=== PATIENT | female | born 1955 | race Caucasian/White ===

== ENCOUNTER 2024-01-03 06:51 | Day surgery (SDC) | payer OTHER, SELFPAY ==
[2023-12-20 11:36] LABS: % Basophils 0.7 % (0-2); % Eosinophils 0.7 % (0-6); % Immature Granulocytes 0.3 % (0-0.5); % Lymphocytes 24.3 % (20.5-51.1); % Monocytes 8.6 % (1.7-9.3); % Neutrophils 65.4 % (42.2-75.2); Absolute Lymphocytes 1.4 10^3/uL (1.2-3.4); Absolute Monocytes 0.5 10^3/uL (0.1-0.6); Absolute Neutrophils 3.9 10^3/uL (1.4-6.5); Hematocrit 41.5 % (37.0-47.0); Hemoglobin 14.1 g/dL (12.0-16.0); Mean Corpuscular Hgb 30.1 pg (27.0-31.0); Mean Corpuscular Volume 88.7 fL (81.0-99.0); Nucleated Red Blood Cells % 0 %; Platelet Count 202 10^3/uL (130-400); Red Blood Cell Count 4.68 10^6/uL (4.20-5.40); Red Cell Dist. Width 13.6 % (11.5-14.5); White Blood Cell Count 5.9 10^3/uL (4.8-10.8)
[2023-12-20 11:48] LABS: INR 1.15; PT 14.5 Sec (11.4-14.6)
[2023-12-20 12:28] LABS: ALT (SGPT) 75 U/L (0-35); AST (SGOT) 31 U/L (14-36); Albumin 4.5 g/dl (3.5-5.0); Alkaline Phosphatase 69 U/L (38-126); Blood Urea Nitrogen 19 mg/dl (7-17); Calcium 10.4 mg/dl (8.4-10.2); Carbon Dioxide 27 mmol/L (22-30); Chloride 101 mmol/L (98-107); Glucose 89 mg/dl (70-99); Magnesium 2.4 mg/dl (1.6-2.3); Sodium 138 mmol/L (135-145); Total Bilirubin 0.8 mg/dl (0.2-1.3); Total Protein 6.7 g/dl (6.3-8.2); eGFR > 60.00
[2024-01-03 07:25] VITALS: BMI 27.7
== END 2024-01-03 09:10 | disposition home or self-care (01) ==
LOC: CATH 06:51
PROVIDERS: ATTENDING PHYSICIAN Internal Medicine Cardiovascular Disease; FAMILY PHYSICIAN Family Medicine; OTHER PHYSICIAN Internal Medicine Cardiovascular Disease
DX: I08.3 Combined rheumatic disorders of mitral, aortic and tricuspid valves (principal); I48.0 Paroxysmal atrial fibrillation; I10 Essential (primary) hypertension; E78.5 Hyperlipidemia, unspecified; Z79.01 Long term (current) use of anticoagulants; Z85.820 Personal history of malignant melanoma of skin; M19.90 Unspecified osteoarthritis, unspecified site
CPT/HCPCS: 93312; 93320; 93325; 36415; 80053; 83735; 85025; 85610; 86850; 86900; 86901; 93005

== ENCOUNTER 2024-01-05 08:49 | Day surgery (SDC) | payer OTHER, SELFPAY ==
[2023-12-20 11:04] VITALS: BMI 28.7
[2024-01-05] VITALS (9 sets, daily range): BP systolic 86–138; BP diastolic 53–90; BMI 27.0
[2024-01-05 14:11] LABS: ACT-LR - POC 290 Seconds (116-155)
[2024-01-05 14:29] LABS: ACT-LR - POC 314 Seconds (116-155)
[2024-01-05 14:53] LABS: ACT-LR - POC 364 Seconds (116-155)
[2024-01-05 15:34] LABS: ACT-LR - POC 368 Seconds (116-155)
[2024-01-05 15:48] LABS: ACT-LR - POC 160 Seconds (116-155)
--- NOTE | 2024-01-05 16:06 | ITS.CL.ABL ---
Fabrication Lead - Ablation
Ablation
Procedure Report:
Primary [employer]ale Miner: Mahesh Ovalles MD
Procedure Date: 01/05/2024
Patient History:
Patient is a pleasant 68-year-old female with past medical history significant for hypertension hyperlipidemia melanoma arthritis paroxysmal symptomatic atrial fibrillation.
See H&P for complete details.
Indication:
Symptomatic paroxysmal atrial fibrillation
Arrhythmia Specific History:
Prior Medical Therapies for Rate and Rhythm Control:
[ ] Beta-tiara
X Calcium channel-tiara
[ ] Amiodarone
[ ] Dronederone
[ ] Sotalol
[ ] Flecainide
[ ] Dofetilide
[ ] Options limited by bradycardia
[ ] Options limited by comorbid renal disease
Prior Procedural Therapies for AF/AFL:
[ ] Cardioversion
[ ] Pulmonary Vein Isolation
[ ] Posterior Wall Isolation
[ ] Additional lines (Specify)
[ ] Surgical Rojas-MAZE or PVI (Specify)
Procedure Performed:
X AF ablation procedure (17834) -- includes LA/CS pacing, trans-septal, 3D mapping, + ICE
[ ] +IV drug (40582)
[ ] +Other Arrhythmia (93037)
[ ] +Other AF Line/ablation (38639)
Risks and expected recovery has been explained in detail. Alternative options have been explored, and in a shared-decision making fashion we have decided that this was the most appropriate procedure.
Method
NPO status confirmed. Grounding pad applied. Defibrillator pads applied. Continuous surface ECG, pulse oximetry, and blood pressure were monitored. Procedure was performed under general anesthesia, with anesthesia services.
Both groins were clipped, prepped with Chloraprep, and draped in sterile fashion. Time out was called. Local anesthesia administered with bupivacaine. The right and left femoral veins were accessed for catheter placement, using ultrasound guidance,
micro-puncture needle/wire, and modified seldinger technique. 3 sheaths were placed. The following catheters were used:
[ ] Tacticath SE (D/F Curve) ablation catheter
X Viewflex 9Fr ICE catheter
X Inquiry decapolar 6Fr diagnostic catheter
[ ] CRD Hex 6Fr
[ ] Arctic Front Advance Cryoballoon ([ ]28mm[ ]23mm)
[ ] Achieve Advance mapping catheter ([ ]15mm[ ]20mm)
X FlexCath Contour 10 Fr with PulseSelect PFA Catheter
X Advisor HD Grid Mapping Catheter, SE
[ ] Acuson AcuNav 8 Fr ICE catheter
[ ]Other: [ ]
Intracardiac ultrasound (ICE) was carefully advanced into the right atrium to guide sheath placement over a J-wire, catheter placement, guide trans-septal puncture, identify potential complications, identify anatomic structures and ensure proper
contact between ablation catheter and tissue.
Heparin was given prior to trans-septal puncture. Heparin was given to achieve and maintain a target ACT of 300-400 seconds throughout the procedure.
Trans-septal access was performed under ICE guidance. The trans-septal puncture was performed with a SafeSept wire through a Brockenbrough needle assembly through the steerable sheath. The wire was visualized as it entered the LSPV and system
advanced under ICE guidance and fluoroscopy into the LA. The Brockenbrough needle assembly, SafeSept wire and sheath dilator were removed under negative pressure. LA pressure was measured and recorded.
ICE and 3D mapping was performed to identify relevant cardiac structures. A careful 3D map was created to assess for regions of low-voltage and abnormal electrogram signals using HD grid mapping catheter and PulseSelect catheter. Additional mapping
was performed as outlined below.
Prior to ablation, glycopyrrolate was provided. PulseSelect catheter was advanced over J-wire to the ostium of each vein. Pulmonary vein isolation was performed with ostial and antral lesions in a circumferential manner. Contact was visualized via
EAM, ICE, fluoroscopy, and EGM signals. Following completion of ablation lesions, a post-ablation voltage/activation map was performed in sinus rhythm. Entrance and exit block were confirmed for each vein.
Catheter and sheath were removed from the left atrium and post-ablation intracardiac echo evaluation was consistent with pre-ablation with no changes and no pericardial effusion and there is no left atrial thrombus or left ventricle thrombus seen.
Electrophysiology study was performed. Hemostasis was obtained with Vascade for each sheath and with manual pressure. Protamine was used for reversal.
Estimated Blood Loss
5-10 mL
Complications
None
Baseline Intervals:
Rhythm: SR
SD: 180 ms
QRS: 111 ms
QT: 398 ms
QTc: 452 ms
A-A: 776 ms
R-R: 776 ms
Post-Procedure Intervals:
SD: 150 ms
QRS: 97 ms
QT: 441 ms
QTc: 449 ms
A-A: 963 ms
R-R: 963 ms
AVWB: 370 ms
AVNERP: 600/290 ms
Recommendations
- Bedrest with straight-leg precautions as ordered
- Anticipate same day discharge if patient meeting clinical metrics
- Resume home medications as indicated
- Ok to resume anticoagulation tonight if patient and groin sites stable
- PPI daily for 30 days
- Plan for follow-up in office in 4-6 weeks
Rufino Ruiz DO
Clinical Cardiac Rn L [facility] D
cc: Mahesh Ovalles MD; Dayday Babcock DO
--- NOTE | 2024-01-05 16:24 | W.PN.UPDATE ---
Update Note
Progress Note Update
During pt procedure, RN was stuck with needle and was evaluated in occupational health.
Pt was under general anesthesia and Son Amando was called but went to voicemail.
Standard SPT bloodwork was sent, and consent will be obtained from patient after procedure complete.
[2024-01-05] MEDS: TYLENOL 650 MG PO (16:51)
--- NOTE | 2024-01-05 17:21 | W.PN.UPDATE ---
Update Note
Progress Note Update
68 yo WF s/p PVI (same day) She feels good, mild hip pain from positioning, no cp, sob, john clears, b/l groins VASCADE c/d/i no HT, soft, EKG SR/SB. She will continue OAC Eliquis dose at 10pm tonight. She will continue diltiazem and will add PPI for
30 days. Activity restrictions reviewed. She will f/u Dr. Ovalles in 2 mo. She is for d/c home after 7pm if groins stable and voiding.
68-year-old female with past medical history significant for hypertension hyperlipidemia melanoma arthritis paroxysmal symptomatic atrial fibrillation.
See H&P for complete details.
Indication:
Symptomatic paroxysmal atrial fibrillation
Procedure Performed:
X AF ablation procedure (33540) -- includes LA/CS pacing, trans-septal, 3D mapping, + ICE
[ ] +IV drug (03827)
[ ] +Other Arrhythmia (02925)
[ ] +Other AF Line/ablation (81936)
[2024-01-05 18:52] LABS: Hepatitis B Surface Antigen Negative (Negative)
[2024-01-05 19:10] LABS: Hepatitis C Antibody Negative (Negative)
[2024-01-05 22:42] LABS: HIV Combo Negative (Negative)
[2024-01-09 15:45] LABS: ACT-LR - POC > 397 Seconds (116-155)
== END 2024-01-05 18:50 | disposition home or self-care (01) ==
LOC: CATH 08:49
PROVIDERS: Nurse Practitioner Adult Health; ATTENDING PHYSICIAN Internal Medicine Cardiovascular Disease; FAMILY PHYSICIAN Family Medicine; OTHER PHYSICIAN Internal Medicine Cardiovascular Disease
DX: I48.0 Paroxysmal atrial fibrillation (principal); I10 Essential (primary) hypertension; R00.2 Palpitations; R42 Dizziness and giddiness; R06.09 Other forms of dyspnea; E78.5 Hyperlipidemia, unspecified; M19.90 Unspecified osteoarthritis, unspecified site; Z85.820 Personal history of malignant melanoma of skin; Z79.01 Long term (current) use of anticoagulants
CPT/HCPCS: C1732; C1894; C1769; C1892; 76937; 85347; 86803; 86900; 86901; 87340; 87389; 93005; 93656; C1760

== ENCOUNTER → 2024-02-06 09:09 | Outpatient (REF) | payer OTHER, SELFPAY | LOC: RAD 09:09 | PROVIDERS: ATTENDING PHYSICIAN Family Medicine | DX: M85.89 Other specified disorders of bone density and structure, multiple sites (principal) | CPT/HCPCS: 77080 ==

== ENCOUNTER → 2024-11-16 13:09 | Outpatient (REF) | payer OTHER, SELFPAY | LOC: RAD 13:09 | PROVIDERS: ATTENDING PHYSICIAN Family Medicine | DX: M54.2 Cervicalgia (principal) | CPT/HCPCS: 72050 ==